=== PATIENT | male | born 1985 | race Caucasian/White ===

== ENCOUNTER 2019-03-30 13:46 | Emergency (ER) | payer OTHER ==
[~2019-03-30] VITALS: Ht 175.3 cm; Wt 104.3 kg
[2019-03-30 14:03] VITALS: Ht 175.3 cm; Wt 104.3 kg
[2019-03-30 15:52] VITALS: BP 114/69
== END 2019-03-30 15:52 | disposition home or self-care (01) ==
LOC: ED 13:46
DX: S81.011A Laceration without foreign body, right knee, initial encounter (principal); X58.XXXA Exposure to other specified factors, initial encounter; Y93.02 Activity, running; Y92.89 Other specified places as the place of occurrence of the external cause; Y99.8 Other external cause status
CPT/HCPCS: 90715; J2001